=== PATIENT | female | born 1985 | race Caucasian/White ===

== ENCOUNTER 2021-08-19 18:44 | Emergency (ER) | payer OTHER ==
[2021-08-19 18:52] VITALS: BP 145/92
[2021-08-19 19:14] LABS: BILIRUBIN,URINE NEGATIVE (NEGATIVE); GLUCOSE, URINE (UA) NEGATIVE (NEGATIVE); KETONES,URINE (UA) NEGATIVE (NEGATIVE); LEUKOCYTE ESTERASE, URINE NEGATIVE (NEGATIVE); NITRITE,URINE NEGATIVE (NEGATIVE); OCCULT BLOOD,URINE LARGE (NEGATIVE); PH,URINE 5.5 PH (5.0-7.5); PROTEIN,URINE TRACE mg/dL (NEGATIVE); UROBILINOGEN,URINE 0.2 (NORMAL) E.U./dL (NORMAL)
[2021-08-19 19:21] LABS: CLARITY,URINE SL. CLOUDY (CLEAR); HCG UR QUAL NEGATIVE; RBC,URINE TNTC /HPF (0-5); SQUAMOUS EPITHELIAL CELL,UR FEW Squamous (<= Few); WBC,URINE 0-3 /HPF (0-5)
[2021-08-19 19:22] LABS: BACTERIA,URINE Rare /HPF (None Seen)
--- NOTE | 2021-08-19 20:56 | ED Physician Documentation ---
History of Present Illness - Stated complaint Stated Complaint: FEMALE - Chief complaint Chief Complaint: Abd Pain - Additonal information Additional information: 36yF with pmh htn and mental health issues p/w persistent vaginal bleeding X 1 month. patient started a different brand of her oral contraceptive pill 6 weeks ago and has had light vaginal bleeding that increased to soaking through 3 pads 2 days ago, 6 pads yesterday, and another 3 pads today. denies dizziness but does endorse some progressive fatigue over the patient month. denies urinary sx, abd pain, fever, back pain, diarrhea. She is visiting from [place]. Review of Systems Constitutional: denies: Fever, Chills GI: denies: Abdominal Pain, Nausea : denies: Dysuria, Frequency Neurologic: reports: Other (no dizziness) PD PAST MEDICAL HISTORY - Past Medical History Cardiovascular: Hypertension - Past Surgical History Past Surgical History: Yes General: Cholecystectomy - Allergies Allergies/Adverse Reactions: Allergies Allergy/AdvReac Type Severity Reaction Status Date / Time No Known Drug Allergies Allergy Verified 08/19/21 18:49 - Social History Does the pt smoke?: No Smoking Status: Never smoker Does the pt drink ETOH?: No Does the pt have substance abuse?: No - Immunizations Immunizations are current?: Yes PD ED PE NORMAL - Vitals Vital signs reviewed: Yes - General General: Alert and oriented X 3, No acute distress, Well developed/nourished - HEENT HEENT: Atraumatic, PERRL, EOMI, Moist mucous membranes, Pharynx benign, Other (pink conjunctiva) - Cardiac Cardiac: RRR - Respiratory Respiratory: No respiratory distress, Clear bilaterally - Abdomen Abdomen: Non tender, Non distended - Derm Derm: Normal color, Warm and dry - Extremities Extremities: No deformity - Neuro Neuro: Alert and oriented X 3 - Psych Psych: Normal mood, Normal affect Results - Vitals Vitals: Vital Signs - 24 hr 08/19/21 18:50 Temperature 36.9 C Heart Rate 108 H Respiratory 18 Rate Blood Pressure 145/92 H O2 Saturation 98 Oxygen O2 Source Room air - Labs Labs: Laboratory Tests 08/19/21 19:00 Urine Color RED/BLOODY Urine Clarity SL. CLOUDY Urine pH 5.5 Ur Specific [place] >=1.030 H Urine Protein TRACE Urine Glucose (UA) NEGATIVE Urine Ketones NEGATIVE Urine Occult Blood LARGE H Urine Nitrite NEGATIVE Urine Bilirubin NEGATIVE Urine Urobilinogen 0.2 (NORMAL) Ur Leukocyte Esterase NEGATIVE Urine RBC TNTC H Urine WBC 0-3 Ur Squamous Epith Cells FEW Squamous Urine Bacteria Rare Ur Microscopic Review INDICATED Urine Culture Comments NOT INDICATED Urine HCG, Qual NEGATIVE PD MEDICAL DECISION MAKING - ED course Complexity details: reviewed results, d/w patient ED course: 36yF with prior history of abnormal menstrual bleeding p/w 1 month of menses, increasing over the past couple days, without soa, lightheadedness. Well appearing in the emergency department with normal physical exam. Strict return precautions discussed and call or contact centre coach referral provided. Departure - Departure Disposition: Home, Self Care Clinical Impression: Heavy menstrual bleeding Condition: Good Instructions: ED Bleeding Menstrual Heavy Follow-Up: Sarah Yates MD [Provider Admit Priv/Credential] - Comments: You were seen in the emergency department for heavy menstrual bleeding. Your urine test showed no signs of infection and you are not . Your physical exam was normal. Please return to the emergency department if you experience lightheadedness, soak through more than 10 pads daily, have any new or worsening symptoms or other concerns. Plan to follow up outpatient call or contact centre coach. Discharge Date/Time: 08/19/21 19:36
== END 2021-08-19 19:36 | disposition home or self-care (01) ==
LOC: ED 18:44
DX: N92.0 Excessive and frequent menstruation with regular cycle (principal)
CPT/HCPCS: 81001; 81003; 81025; 87086; 99282; 99283